=== PATIENT | female | born 1975 | race American Indian/Alaskan Native ===

== ENCOUNTER 2020-07-15 14:34 | Emergency (ER) | payer MEDICAID ==
[~2020-07-15] VITALS: Ht 175.3 cm; Wt 70.5 kg
[2020-07-15] MEDS ORDERED: LORazepam 1 MG tablet PO ONE (16:15)
[2020-07-15] MEDS ORDERED: CHLO25CA10 PO (16:51)
--- NOTE | 2020-07-15 17:08 | NUR ---
pt has ride to [employer] with friend, last drink was today at 1100, pt c/o feeling shaky and nausea
[2020-07-15 17:17] VITALS: BP 102/70
== END 2020-07-15 17:20 | disposition home or self-care (01) ==
LOC: ER 14:34
DX: F10.10 Alcohol abuse, uncomplicated (principal); R11.0 Nausea; R56.9 Unspecified convulsions; Z72.89 Other problems related to lifestyle; Y90.9 Presence of alcohol in blood, level not specified
CPT/HCPCS: 99283

== ENCOUNTER 2020-07-19 21:02 | Emergency (ER) | payer MEDICAID ==
[~2020-07-19] VITALS: Ht 175.3 cm; Wt 69.1 kg
[~2020-07-19 21:02] MED LIST: CHLO25CA10 PO
[2020-07-19] MEDS ORDERED: ketorolac tromethamine 15mg/ml inj. IM ONE (21:30)
[2020-07-19] MEDS ORDERED: normal saline 1000ml 1,000 ML IV ONE (21:40)
[2020-07-19 21:46] LABS: ALANINE AMINOTRANSFERASE 97 U/L (12-78); ALBUMIN 2.4 G/DL (3.4-5.0); ALKALINE PHOSPHATASE 227 IU/L (46-116); ANION GAP 10 (8-16); ASPARTATE AMINO TRANSFERASE 129 U/L (10-37); BILIRUBIN,TOTAL 7.4 MG/DL (0.1-1.0); BLOOD UREA NITROGEN 8 MG/DL (7-18); BUN/CREATININE RATIO 9.9 (6.6-38.0); CALCIUM 8.9 MG/DL (8.5-10.1); CHLORIDE 102 MMOL/L (99-107); CREATININE 0.81 MG/DL (0.40-0.90); GLUCOSE 100 MG/DL (70-104); LIPASE 540 U/L (73-393); SODIUM 136 MMOL/L (135-145); TOTAL CARBON DIOXIDE 24.2 MMOL/L (24-32); eGFR 76 ML/MIN
[2020-07-19 21:47] LABS: ALBUMIN/GLOBULIN RATIO 0.5 (1.1-1.5); POTASSIUM 4.1 MMOL/L (3.5-5.1); TOTAL PROTEIN 7.1 G/DL (6.4-8.2)
[2020-07-19 21:47] LABS: CLARITY,URINE CLEAR (Clear); COLOR,URINE AMBER (Yellow); GLUCOSE, URINE NEGATIVE (Neg); KETONES,URINE NEGATIVE (Neg); LEUKOCYTE ESTERASE ,URINE SMALL (Neg); NITRITES, URINE NEGATIVE (Neg); OCCULT BLOOD,URINE NEGATIVE (Neg); PH,URINE 7.5 (4.8-8.0); PROTEIN,URINE NEGATIVE (Neg); UROBILINOGEN,URINE >=8.0 E.U/dL (0.2-1.0)
[2020-07-19 21:48] LABS: BASOPHILS # (AUTO) 0.2 X10'3 (0-0.2); BASOPHILS % (AUTO) 1.7 % (0-1); EOSINOPHILS # (AUTO) 0.1 X10'3 (0-0.9); HEMOGLOBIN 10.8 g/dl (12.0-16.0); LYMPHOCYTES # (AUTO) 1.2 X10'3 (1.1-4.8); LYMPHOCYTES % (AUTO) 12.1 % (21-51); MEAN CORPUSCULAR HEMOGLOBIN 37.7 PG (27.0-31.0); MEAN CORPUSCULAR HGB CONC 33.7 g/dL (33.0-36.5); MEAN PLATELET VOLUME 7.7 FL (7.4-10.4); MONOCYTES % (AUTO) 9.8 % (2-12); NEUTROPHILS # (AUTO) 7.7 X10'3 (1.8-7.7); NEUTROPHILS % (AUTO) 75.4 % (42-75); PLATELET COUNT 240 X10'3 (140-440); RED BLOOD COUNT 2.86 X10'6 (4.20-5.60); WHITE BLOOD COUNT 10.3 X10'3 (4.5-11.0)
[2020-07-19 21:55] LABS: UA COLLECTION TYPE CLN CATCH MIDSTREAM
[2020-07-19 22:06] LABS: BACTERIA,URINE 1+ /HPF (Neg); RBC,URINE 0-2 /HPF (0-2)
[2020-07-19 22:07] LABS: MUCUS STRANDS NONE SEEN /LPF (Neg); SQUAMOUS EPITHELIAL CELL,UR FEW /LPF (FEW); TRANSITIONAL EPI CELLS,URINE FEW /HPF; WBC CLUMPS,URINE FEW /HPF (NEGATIVE)
[2020-07-19] MEDS ORDERED: ondansetron/PF 4mg/2ml inj IV ONE (22:15)
[2020-07-19] MEDS ORDERED: NITR100C6 PO (22:21)
[2020-07-19 22:24] LABS: ANISOCYTOSIS 1+; PLATELET ESTIMATE NORMAL; TARGET CELLS FEW
[2020-07-19] MEDS ORDERED: HYDROcodone/acetaminophen 5mg/325mg tablet PO ONE (22:50)
[2020-07-19 23:09] VITALS: BP 100/68
== END 2020-07-19 23:18 | disposition home or self-care (01) ==
LOC: ER 21:03
DX: N39.0 Urinary tract infection, site not specified (principal); K86.1 Other chronic pancreatitis; R10.84 Generalized abdominal pain; R11.10 Vomiting, unspecified; Z72.89 Other problems related to lifestyle; Z79.899 Other long term (current) drug therapy
CPT/HCPCS: 36415; 80053; 81001; 83690; 85025; 87088; 96361; 96372; 96374; 99284; J1885; J2405; J7030; 85008